=== PATIENT | female | born 1955 | race Two or more races ===

== ENCOUNTER 2018-02-04 08:56 | Outpatient (CLI) | payer OTHER | END 2018-02-04 09:01 | disposition home or self-care (01) | LOC: RX STUDY 08:56 | DX: K21.9 Gastro-esophageal reflux disease without esophagitis (principal); R13.19 Other dysphagia ==

== ENCOUNTER 2023-01-26 00:37 | Emergency (ER) | payer OTHER ==
[~2023-01-26] VITALS: Ht 152.4 cm; Wt 63.5 kg
[2023-01-26] MEDS ORDERED: METFORMIN HCL1000 M2 (00:52)
[2023-01-26] MEDS ORDERED: METRONIDAZOLE500 MG PO (05:49)
[2023-01-26] MEDS ORDERED: CIPRO500 MG PO (05:49)
[2023-01-26] MEDS ORDERED: INTESTINEX680 M1 PO (05:49)
[2023-01-26] MEDS ORDERED: PEPCID20 MG PO (05:49)
[2023-01-26] MEDS ORDERED: CARAFATE1 GM PO (05:49)
[2023-01-26] MEDS ORDERED: DICY20TA PO (05:49)
== END 2023-01-26 05:55 | disposition home or self-care (01) ==
LOC: ER 00:38
PROVIDERS: General Practice
DX: K57.92 Diverticulitis of intestine, part unspecified, without perforation or abscess without bleeding (principal); R10.9 Unspecified abdominal pain; E11.9 Type 2 diabetes mellitus without complications; Z79.84 Long term (current) use of oral hypoglycemic drugs; Z88.2 Allergy status to sulfonamides; Z88.6 Allergy status to analgesic agent
CPT/HCPCS: 36415; 74177; 96365; 96366; 96372; 99284; J0696; J2175; J3490; J7042; Q9965

== ENCOUNTER 2023-04-17 11:45 | Inpatient (IN) | payer OTHER ==
[~2023-04-17 11:45] MED LIST: CARAFATE1 GM PO; CIPRO500 MG PO; DICY20TA PO; INTESTINEX680 M1 PO; METFORMIN HCL1000 M2; METRONIDAZOLE500 MG PO; PEPCID20 MG PO
[2023-04-25 15:18] LABS: HEMATOCRIT 40.4 % (36.0-45.00); HEMOGLOBIN 13.6 g/dL (12.0-15.00); MEAN CELL VOLUME 87.4 fL (80.00-100.00); MEAN CORPUSCULAR HEMOGLOBIN 29.5 pg (27.00-32.0); MEAN CORPUSCULAR HGB CONC 33.7 g/dl (32.0-36.0); PLATELET COUNT 187 K/uL (150-450); RED BLOOD COUNT 4.62 M/uL (4.00-6.00); RED CELL DISTRIBUTION WIDTH 13.7 % (11.5-14.5)
[2023-04-25 15:39] LABS: ALBUMIN 3.4 gm/dL (3.4-5.0); CALCIUM 8.9 mg/dL (8.5-10.1); CREATININE SERUM 0.66 mg/dL (0.55-1.02); GFR 89.33; MAGNESIUM 1.5 mg/dL (1.8-2.4); PHOSPHOROUS 3.1 mg/dL (2.5-4.9); POTASSIUM 4.45 mEq/L (3.5-5.1)
[2023-04-26 07:48] LABS: HEMATOCRIT 38.7 % (36.0-45.00); HEMOGLOBIN 12.9 g/dL (12.0-15.00); MEAN CORPUSCULAR HEMOGLOBIN 29.7 pg (27.00-32.0); MEAN CORPUSCULAR HGB CONC 33.3 g/dl (32.0-36.0); PLATELET COUNT 169 K/uL (150-450); RED BLOOD COUNT 4.35 M/uL (4.00-6.00); RED CELL DISTRIBUTION WIDTH 13.4 % (11.5-14.5)
[2023-04-26 07:50] LABS: ALBUMIN 2.9 gm/dL (3.4-5.0); CALCIUM 8.6 mg/dL (8.5-10.1); CREATININE SERUM 0.57 mg/dL (0.55-1.02); GFR 105.79; MAGNESIUM 1.7 mg/dL (1.8-2.4); PHOSPHOROUS 3.7 mg/dL (2.5-4.9); POTASSIUM 4.38 mEq/L (3.5-5.1)
[2023-04-26] MEDS ORDERED: PEPCID AC20 MG PO (07:50)
[2023-04-26] MEDS ORDERED: TRAM1TAB98 PO (07:50)
[2023-04-26] MEDS ORDERED: DICY20TA PO (07:50)
== END 2023-04-26 10:32 | disposition home or self-care (01) | DRG 331 ==
LOC: O/R 04-25 06:57 → SURH 04-25 09:15 → O/R 04-25 12:36 → SURH 04-25 13:19
PROVIDERS: ADMIT Surgery; ATTEND Surgery
PROC: 0DTH4ZZ Resection of Cecum, Percutaneous Endoscopic Approach (ICD-10-PCS; principal; 2023-04-25 09:15)
DX: K57.32 Diverticulitis of large intestine without perforation or abscess without bleeding (principal); Z20.822 Contact with and (suspected) exposure to COVID-19

== ENCOUNTER 2023-06-05 14:41 | Emergency (ER) | payer OTHER ==
[~2023-06-05] VITALS: Ht 152.4 cm; Wt 60.3 kg
[~2023-06-05 14:41] MED LIST changes: +PEPCID AC20 MG PO; +TRAM1TAB98 PO
[2023-06-05] MEDS ORDERED: FLOVENT DISKUS50 MCG IH (15:19)
[2023-06-05 18:10] LABS: PH,URINE 5.5 (5.0-8.0); URINE APPEARANCE Clear; URINE BILIRRUBIN Negative (NEGATIVE); URINE BLOOD Negative; URINE COLOR Yellow; URINE GLUCOSE Negative (NEGATIVE); URINE LEUKOCYTE Negative; URINE NITRATE Negative; URINE PROTEIN Negative (NEGATIVE); URINE UROBILINOGEN 0.2 E.U./dl
[2023-06-05 18:10] LABS: HEMATOCRIT 41.1 % (36.0-45.00); HEMOGLOBIN 13.8 g/dL (12.0-15.00); MEAN CELL VOLUME 88.4 fL (80.00-100.00); MEAN CORPUSCULAR HEMOGLOBIN 29.7 pg (27.00-32.0); MEAN CORPUSCULAR HGB CONC 33.5 g/dl (32.0-36.0); PLATELET COUNT 216 K/uL (150-450); RED BLOOD COUNT 4.65 M/uL (4.00-6.00); RED CELL DISTRIBUTION WIDTH 14.2 % (11.5-14.5)
[2023-06-05 18:13] LABS: URINE EPITHELIAL CELLS 2.1 uL (0.0-38.8); URINE RBC 11.3 uL (0.0-20.8)
[2023-06-05 18:42] LABS: INR 0.98; PARTIAL THROMBOPLASTIN TIME 26.2 SECONDS (22.0-34.0); PROTHROMBIN TIME 10.3 SECONDS (9.0-11.5)
[2023-06-05 18:58] LABS: ALBUMIN 3.5 gm/dL (3.4-5.0); BILIRUBIN TOTAL 0.48 mg/dL (0.3-1.2); CALCIUM 9.6 mg/dL (8.5-10.1); CREATININE SERUM 0.59 mg/dL (0.55-1.02); GFR 101.67; GLOBULINA 3.7 G/DL (2.4-3.5); POTASSIUM 4.32 mEq/L (3.5-5.1); TOTAL PROTEIN 7.2 gm/dL (6.4-8.2)
[2023-06-05 19:00] LABS: URINE WBC 0.7 uL (0.0-23.2)
== END 2023-06-05 21:49 | disposition home or self-care (01) ==
LOC: ER 14:41
DX: R10.84 Generalized abdominal pain (principal)
CPT/HCPCS: 36415; 74176; 96365; 99283; J2270

== ENCOUNTER 2024-11-21 10:53 | Emergency (ER) | payer OTHER ==
[~2024-11-21] VITALS: Ht 152.4 cm; Wt 63.5 kg
[~2024-11-21 10:53] MED LIST changes: +FLOVENT DISKUS50 MCG IH
[2024-11-21] MEDS ORDERED: PROVENTIL S2 MG/5 ML (11:17)
[2024-11-21] MEDS ORDERED: CEFTRIAXONE SODIUM 1,000 MG VIAL IV ONE (11:45)
[2024-11-21] MEDS ORDERED: TETANUS & DIPHTHERIA TOX,ADULT 0.5 ML VIAL IM ONE (11:45)
[2024-11-21] MEDS ORDERED: ACETAMINOPHEN WITH CODEINE 1 UDTAB TABLET PO ONE (11:45)
[2024-11-21] MEDS ORDERED: LIDOCAINE HCL 1% 10ML VIAL PERCUT ONE (11:45)
== END 2024-11-21 17:53 | disposition home or self-care (01) ==
LOC: ER 10:53
DX: S61.412A Laceration without foreign body of left hand, initial encounter (principal); S61.411A Laceration without foreign body of right hand, initial encounter; S61.259A Open bite of unspecified finger without damage to nail, initial encounter; W54.0XXA Bitten by dog, initial encounter; Y93.89 Activity, other specified; Y92.89 Other specified places as the place of occurrence of the external cause; Y99.8 Other external cause status; Z88.2 Allergy status to sulfonamides; Z88.6 Allergy status to analgesic agent
CPT/HCPCS: 12042; 29125; 73130; 90471; 90714; J1670